=== PATIENT | male | born 1965 | race Caucasian/White ===

== ENCOUNTER 2017-05-04 08:42 | Emergency (ER) | payer SELFPAY ==
[2017-05-04 09:05] VITALS: BMI 41.5
--- NOTE | 2017-05-04 10:39 | PDOC ---
Attending Attestation - Resident Resident Name: Franklin Saravia - ED Attending Attestation I have performed the following: I have examined & evaluated the patient, The case was reviewed & discussed with the resident, I agree w/resident's findings & plan, Exceptions are as noted - HPI HPI: 05/04/17 10:38 51y M hx of dm, htn, n/v/d for the past few days, after eating syriac food. Initially n/v, but resolved, now watery diarrhea, non bloody. Pt notes some blaoting but without abdominal pain. pt notes the vomiting stopped a few days ago. The diarrhea continued until this morning around 8am. NO melena/bloodin rectom. pt denies any fever/chills, back pain. No other sick contacts or recent travel. exam: general: well apeparing, NAD abd: soft notnender ENT: mmm suspect AGE, as pt has no pmd/uninsured - will ck labs to r/o dka, metabolic dernageemnt labs were normal pt tolerating oral intake will dc wiht pmd fu - Physicial Exam PE: 05/07/17 11:31 see above - Medical Decision Making 05/07/17 11:31 see above
[2017-05-04] MEDS ORDERED: amLODIPine BESYLATE 5 MG TABLET (FP) PO ONE (11:01)
[2017-05-04 11:02] LABS: BASO % 0.5 % (0-2.0); EOS % 1.4 % (0-4.5); HEMATOCRIT 41.9 % (35.4-49); HEMOGLOBIN 14.4 GM/dL (11.7-16.9); LYMPH % 20.4 % (8-40); MCH 28.2 pg (25.7-33.7); MCHC 34.3 g/dl (32.0-35.9); MEAN CELL VOLUME 82.4 fl (80-96); MEAN PLT VOLUME 7.9 fl (7.5-11.1); MONO % 4.7 % (3.8-10.2); PLATELET COUNT 206 K/MM3 (134-434); RBC 5.09 M/mm3 (4.00-5.60); RDW 13.3 % (11.9-15.9); WHITE BLOOD COUNT 7.1 K/mm3 (4.0-10.0)
--- NOTE | 2017-05-04 11:10 | PDOC ---
History of Present Illness - General Chief Complaint: Vomiting/Diarrhea Stated Complaint: Vomiting/Diarrhea Time Seen by Provider: 05/04/17 09:52 - History of Present Illness Initial Comments: 05/04/17 11:02 Patient is a 51yo w/ DM2, HTN, HLD noncompliant with medications due to lack of insurance. He presents with 4-5 days of watery diarrhea after eating [place] food at an outside restaurant. He ate last afternoon, and that night subsequently had 4 episodes of NBNB emesis. Since then, he has experienced watery diarrhea every day. He denies any abdominal pain whatsoever since . Only endorses mild bloating since the onset of the diarrhea. He denies blood or fatty stool. Denies generalized symptoms such as fever, chills, body aches, weight loss. He denies taking any new antibiotics or other medications. Denies recent travel. No sick contacts Past History - Past Medical History Allergies/Adverse Reactions: Allergies Allergy/AdvReac Type Severity Reaction Status Date / Time No Known Allergies Allergy Verified 05/04/17 09:02 Home Medications: Ambulatory Orders Rosuvastatin Calcium [Crestor] 10 mg PO DAILY 11/29/11 Famotidine [Pepcid] 20 mg PO DAILY #7 tablet 08/11/14 Fenofibrate 1 tab PO DAILY 08/11/14 Linagliptin/Metformin HCl [Jentadueto 2.5 mg-1000 mg Tab] 1 each PO BID #30 tablet 08/11/14 Glipizide 5 mg PO DAILY #30 tablet 05/04/17 Lisinopril 10 mg PO DAILY #30 tablet 05/04/17 COPD: No Diabetes: Yes GI Disorders: Yes (gastroparesis) HTN: Yes Hypercholesterolemia: Yes - Family Disease History Family Disease History: Diabetes: Father, Heart Disease: Father - Suicide/Smoking/Psychosocial Hx Smoking Status: No Smoking History: Never smoked Have you smoked in the past 12 months: No Number of Cigarettes Smoked Daily: 0 If you are a former smoker, when did you quit?: "many years ago" as per pt Information on smoking cessation initiated: No Hx Alcohol Use: No Drug/Substance Use Hx: No Substance Use Type: None Hx Substance Use Treatment: No *Physical Exam - Vital Signs Last Vital Signs Temp Pulse Resp BP Pulse Ox 98.8 F 96 H 18 159/105 98 05/04/17 09:03 05/04/17 09:03 05/04/17 09:03 05/04/17 09:03 05/04/17 10:52 - Physical Exam Comments: 05/04/17 11:10 GEN: AAOx3, NAD, Lying comfortably HEENT: PERRLA, EOMi, appears euvolemic, mucosa is not dry CV: S1, S2, RRR LUNG: CTABL ABD: Mild distension, no tenderness to palpation MSK: No edema, no erythema NEURO: CN 2-12 intact grossly ED Treatment Course - LABORATORY CBC & Chemistry Diagram: 05/04/17 10:42 05/04/17 10:42 Medical Decision Making - Medical Decision Making 05/04/17 11:11 51yo patient with a history DM2 and recent albanian food intake with subsequent vomiting and diarrhea, likely viral gastroenteritis. Will get basic labs to rule out severe conditions such as DKA. Though has cardiac risk factors, mesenteric ischemia is unlikely without abdominal pain. Since there is no abdominal pain, will defer from imaging at the moment. Will order CBC, CMP, UA Will give Norvasc 5mg for HTN Will defer fluids for now due to euvolemic status, but will encourage PO hydration Dispo plan pending labs. 05/04/17 11:51 CBC wnl, Glucose 255 but no ketoacidosis. Unlikely DKA. 05/04/17 12:24 Dispo home with prescriptions for diabetes and high blood pressure. While patient is obtaining insurance, will prescribe low cost Glipizide 5mg daily and Lisinopril 10mg daily until then. Will also recommend seeing free clinic at [facility]. *DC/Admit/Observation/Transfer Diagnosis at time of Disposition: Viral gastroenteritis - Discharge Dispostion Disposition: HOME Condition at time of disposition: Stable Admit: No - Prescriptions Prescriptions: Glipizide 5 mg PO DAILY #30 tablet Lisinopril 10 mg PO DAILY #30 tablet - Referrals Referrals: Matteo Penny MD [Primary Care Provider] - - Patient Instructions Printed Discharge Instructions: DI for Viral Gastroenteritis -- Adult - Post Discharge Activity
[2017-05-04 11:13] LABS: URINE APPEARANCE CLEAR; URINE BILIRUBIN NEGATIVE (NEGATIVE); URINE BLOOD 1+ (NEGATIVE); URINE COLOR YELLOW; URINE GLUCOSE (UA) 3+ (NEGATIVE); URINE KETONE NEGATIVE (NEGATIVE); URINE LEUK ESTERASE NEGATIVE (NEGATIVE); URINE NITRITE NEGATIVE (NEGATIVE); URINE UROBILINOGEN NEGATIVE mg/dL (0.2-1.0)
[2017-05-04] MEDS ORDERED: amLODIPine BESYLATE 5 MG TABLET (FP) ONE (11:15)
[2017-05-04 11:18] LABS: EPI CELLS RARE /HPF (FEW); GRANULAR CASTS 1 /lpf; URINE MUCUS RARE; URINE PROTEIN 3+ (NEGATIVE)
[2017-05-04 11:21] LABS: ANION GAP 10 (8-16); BLOOD UREA NITROGEN 10 mg/dL (7-18); CHLORIDE 105 mmol/L (98-107); CO2 23 mmol/L (21-32); GLUCOSE,RANDOM 255 mg/dL (74-106); POTASSIUM 3.6 mmol/L (3.5-5.1); SODIUM 138 mmol/L (136-145)
[2017-05-04 11:25] LABS: ALK PHOS 82 U/L (45-117); BILIRUBIN,TOTAL 0.7 mg/dL (0.2-1.0); CREATININE 0.6 mg/dL (0.7-1.3); SGOT/AST 35 U/L (15-37); SGPT/ALT 52 U/L (12-78)
[2017-05-04 13:22] VITALS: BP 137/90; PULSE 89; TEMP 98.1
== END 2017-05-04 13:26 | disposition home or self-care (01) ==
LOC: JER 08:42
DX: B97.89 Other viral agents as the cause of diseases classified elsewhere (principal); I10 Essential (primary) hypertension; E78.00 Pure hypercholesterolemia, unspecified; E11.9 Type 2 diabetes mellitus without complications; Z79.84 Long term (current) use of oral hypoglycemic drugs; K31.84 Gastroparesis
CPT/HCPCS: 36415; 80053; 81003; 81015; 85025; 99283-25

== ENCOUNTER 2020-05-06 00:48 | Inpatient (IN) | payer OTHER ==
[2020-05-06 00:53] VITALS: TEMP 98.2; BMI 26.6
[2020-05-06] MEDS ORDERED: LISINOPRIL 10 MG TABLET PO ONE (03:04)
[2020-05-06 03:15] LABS: EOS % 2.7 % (0-4.5); HEMATOCRIT 42.4 % (35.4-49); HEMOGLOBIN 14.9 GM/dL (11.7-16.9); LYMPH % 26.2 % (8-40); MCH 29.7 pg (25.7-33.7); MCHC 35.2 g/dl (32.0-35.9); MEAN CELL VOLUME 84.2 fl (80-96); MEAN PLT VOLUME 8.3 fl (7.5-11.1); MONO % 5.9 % (3.8-10.2); PLATELET COUNT 178 K/MM3 (134-434); RBC 5.04 M/mm3 (4.00-5.60); RDW 14.3 % (11.9-15.9)
[2020-05-06 03:16] LABS: BASO % 1.2 % (0-2.0)
[2020-05-06] MEDS ORDERED: LISINOPRIL 5 MG TABLET ONE ×2 (03:16→11:21)
[2020-05-06 03:35] LABS: POTASSIUM 3.8 mmol/L (3.5-5.1)
[2020-05-06 03:38] LABS: ALBUMIN 3.2 g/dl (3.4-5.0); BLOOD UREA NITROGEN 13.2 mg/dL (7-18)
[2020-05-06 03:41] LABS: CREATININE 0.6 mg/dL (0.55-1.3)
[2020-05-06 03:42] LABS: BILIRUBIN,TOTAL 0.8 mg/dL (0.2-1); TOT PROT 7.1 g/dl (6.4-8.2)
[2020-05-06] MEDS ORDERED: ENOXAPARIN NA (PORCINE) 40 MG/0.4 ML DISP.SYRIN SQ SCH (10:00)
[2020-05-06] MEDS ORDERED: LISINOPRIL 10 MG TABLET PO SCH (10:00)
[2020-05-06] MEDS ORDERED: INSULIN SLIDING SCALE (NOVOLOG) 1 VIAL SQ SCH (11:00)
[2020-05-06] MEDS ORDERED: LISINOPRIL 20 MG TABLET PO SCH (17:22)
[2020-05-06 17:27] VITALS: BP 146/100; PULSE 95
[2020-05-06] MEDS ORDERED: ASPIRIN COATED 81 MG TABLET.EC PO SCH (17:30)
[2020-05-06] MEDS ORDERED: CARVEDILOL 6.25 MG TABLET (FP) PO SCH (22:00)
[2020-05-06] MEDS ORDERED: ROSUVASTATIN CA 10 MG TABLET (FP) PO SCH (22:00)
== END 2020-05-06 17:26 | disposition left against medical advice (07) | DRG 111 ==
LOC: JER 00:48 → JERBED 05:24
PROVIDERS: ADMIT Internal Medicine; ATTEND Internal Medicine
DX: R42 Dizziness and giddiness (principal); I10 Essential (primary) hypertension; E78.5 Hyperlipidemia, unspecified; E03.9 Hypothyroidism, unspecified; I24.8 Other forms of acute ischemic heart disease; E11.9 Type 2 diabetes mellitus without complications
CPT/HCPCS: 36415; 70450-TC; 80053; 82550; 82553; 82962; 84484; 85025; 93005; 93010; 93306-TC; 99285-25; C9803; U0003

== ENCOUNTER 2021-07-08 05:36 | Day surgery (SDC) | payer OTHER ==
[2021-07-03 14:52] VITALS: BMI 31.6
[2021-07-08] MEDS ORDERED: SODIUM CHLORIDE 500 ML IV SCH (10:30)
[2021-07-08] MEDS ORDERED: MIDAZOLAM HCL 2 MG/2 ML SINGLE DOSE VIAL IVPUSH ONE (10:40)
[2021-07-08 15:29] VITALS: BP 148/87; PULSE 79; TEMP 97.7
== END 2021-07-08 15:45 | disposition home or self-care (01) ==
LOC: JRADIR 05:36
PROVIDERS: ATTEND Internal Medicine Nephrology
PROC: 0TB03ZX Excision of Right Kidney, Percutaneous Approach, Diagnostic (ICD-10-PCS; principal; 2021-07-08)
DX: N26.9 Renal sclerosis, unspecified (principal)
CPT/HCPCS: 50200; 82962; 88300-TC

== ENCOUNTER 2021-09-11 11:57 | Emergency (ER) | payer OTHER ==
[2021-09-11 12:31] VITALS: BMI 33.1
[2021-09-11] MEDS ORDERED: FAMOTIDINE 10 MG TABLET PO ONE (13:07)
[2021-09-11] MEDS ORDERED: MAG HYDROX/AL HYDROX/SIMETH 30 ML UNIT-DOSE CUP PO ONE (13:07)
[2021-09-11 13:31] LABS: BASO % 0.9 % (0-2.0); EOS % 4.7 % (0-4.5); HEMATOCRIT 46.3 % (35.4-49); HEMOGLOBIN 15.6 GM/dL (11.7-16.9); LYMPH % 22.5 % (8-40); MCH 27.6 pg (25.7-33.7); MCHC 33.6 g/dl (32.0-35.9); MEAN CELL VOLUME 81.9 fl (80-96); MEAN PLT VOLUME 8.4 fl (7.5-11.1); MONO % 6.7 % (3.8-10.2); NEUT % 65.2 % (42.8-82.8); PLATELET COUNT 154 10^3/uL (134-434); RBC 5.65 M/mm3 (4.00-5.60); RDW 15.8 % (11.9-15.9); WHITE BLOOD COUNT 6.7 K/mm3 (4.0-10.0)
[2021-09-11 13:37] LABS: INR 0.95 (0.83-1.09); PROTHROMBIN TIME (PATIENT) 10.9 SEC (9.7-13.0)
[2021-09-11 13:40] LABS: ACTIVATED PTT 27.8 SECONDS (25.2-36.5)
[2021-09-11 14:00] LABS: CALCIUM 9.4 mg/dL (8.5-10.1)
[2021-09-11 14:01] LABS: BLOOD UREA NITROGEN 14.9 mg/dL (7-18)
[2021-09-11 14:02] LABS: ALBUMIN 3.7 g/dl (3.4-5.0)
[2021-09-11 14:04] LABS: CREATININE 0.5 mg/dL (0.55-1.3)
[2021-09-11 14:05] LABS: BILIRUBIN,TOTAL 0.9 mg/dL (0.2-1); TOT PROT 7.7 g/dl (6.4-8.2)
[2021-09-11 16:09] VITALS: BP 127/79; PULSE 80; TEMP 98.8
== END 2021-09-11 16:15 | disposition home or self-care (01) ==
LOC: JER 11:57
DX: R42 Dizziness and giddiness (principal)
CPT/HCPCS: 36415; 71045-TC-FY; 80053; 84484; 85025; 85610; 85730; 93005; 93010; 99285-25

== ENCOUNTER 2023-08-01 04:30 | Emergency (ER) | payer OTHER ==
[2023-08-01 04:40] VITALS: BP 194/98; PULSE 75; RESP 18; TEMP 97.8; BMI 24.3
[2023-08-01] MEDS ORDERED: CYCLOBENZAPRINE HCL 10 MG TABLET (FP) ONE (05:47)
[2023-08-01] MEDS ORDERED: KETOROLAC TROMETHAMINE 30 MG/1 ML VIAL ONE (05:47)
[2023-08-01] MEDS ORDERED: LIDOCAINE 4% PATCH TP ONE (05:48)
[2023-08-01] MEDS: KETOROLAC TROMETHAMINE 30 MG/1 ML VIAL IM ONE (06:06)
[2023-08-01] MEDS: CYCLOBENZAPRINE HCL 5 MG TABLET PO ONE (06:07)
[2023-08-01] MEDS: LIDOCAINE 4% PATCH TP ONE (06:07)
[2023-08-01] MEDS ORDERED: LIDOCAINE PATCH REMOVAL MC SCH (22:00)
== END 2023-08-01 08:10 | disposition home or self-care (01) ==
LOC: JER 04:30
PROC: 3E0233Z Introduction of Anti-inflammatory into Muscle, Percutaneous Approach (ICD-10-PCS; principal; 2023-08-01)
DX: M79.601 Pain in right arm (principal); M25.511 Pain in right shoulder
CPT/HCPCS: 73030-TC-RT-FY; 73060-TC-RT-FY; 99284-25

== ENCOUNTER 2023-11-30 14:35 | Emergency (ER) | payer OTHER ==
[2023-11-30 14:55] VITALS: BP 145/87; PULSE 95; RESP 16; TEMP 98.9; BMI 34.1
[2023-11-30] MEDS: BACITRACIN 0.9 GM PACKET TP SCH (17:04)
[2023-11-30] MEDS ORDERED: BACITRACIN ZINC 15 GM TUBE TOPICAL OINTMENT TP SCH ×2 (22:00)
== END 2023-11-30 17:05 | disposition home or self-care (01) ==
LOC: JER 14:35
DX: S81.812A Laceration without foreign body, left lower leg, initial encounter (principal); X50.1XXA Overexertion from prolonged static or awkward postures, initial encounter
CPT/HCPCS: 99283-25

== ENCOUNTER 2023-12-25 03:48 | Emergency (ER) | payer OTHER ==
[2023-12-25 03:57] VITALS: RESP 18; BMI 34.3
[2023-12-25] MEDS: MECLIZINE HCL 25 MG TABLET (FP) PO ONE (04:53)
[2023-12-25] MEDS ORDERED: MAG HYDROX/AL HYDROX/SIMETH 30 ML UNIT-DOSE CUP ONE (04:57)
[2023-12-25] MEDS ORDERED: ONDANSETRON 4 MG/2 ML VIAL ONE (04:57)
[2023-12-25] MEDS ORDERED: ACETAMINOPHEN INJECTION 100 ML ONE (04:57)
[2023-12-25] MEDS ORDERED: FAMOTIDINE 20 MG/50 ML IVPB 20 MG/50 ML MG IVPB ONE (04:57)
[2023-12-25] MEDS: MAG HYDROX/AL HYDROX/SIMETH 30 ML UNIT-DOSE CUP PO ONE (04:59)
[2023-12-25] MEDS: SODIUM CHLORIDE 0.9% 500 ML INFUS.BAG IV ONE (05:00)
[2023-12-25] MEDS: FAMOTIDINE 20 MG/50 ML IVPB 20 MG/50 ML MG IVPB ONE (05:00)
[2023-12-25] MEDS: ACETAMINOPHEN 1000 MG/100 ML BAG IVPB ONE (05:00)
[2023-12-25] MEDS: ONDANSETRON 4 MG/2 ML VIAL IVPUSH ONE (05:00)
[2023-12-25 05:15] LABS: EPI CELLS 20 /uL (0-25.1); HYALINE CASTS 1 /uL (0-3.1); URINE APPEARANCE CLEAR; URINE BACTERIA 970 /uL (0-1359); URINE BILIRUBIN NEGATIVE (NEGATIVE); URINE COLOR YELLOW; URINE GLUCOSE (UA) 3+ (NEGATIVE); URINE KETONE TRACE (NEGATIVE); URINE LEUK ESTERASE NEGATIVE (NEGATIVE); URINE NITRITE NEGATIVE (NEGATIVE); URINE PROTEIN 4+ (NEGATIVE); URINE RBC 12 /uL (0-23.9)
[2023-12-25 05:47] LABS: BASO % 0.5 % (0-2.0); EOS % 0.6 % (0-4.5); HEMATOCRIT 40.7 % (35.4-49); LYMPH % 6.4 % (8-40); MCH 28.3 pg (25.7-33.7); MCHC 34.3 g/dl (32.0-35.9); MEAN CELL VOLUME 82.4 fl (80-96); MEAN PLT VOLUME 8.4 fl (7.5-11.1); MONO % 5.6 % (3.8-10.2); NEUT % 86.9 % (42.8-82.8); PLATELET COUNT 125 10^3/uL (134-434); RBC 4.94 M/mm3 (4.00-5.60); WHITE BLOOD COUNT 11.7 K/mm3 (4.0-10.0)
[2023-12-25 06:06] LABS: POTASSIUM 4.1 mmol/L (3.5-5.1)
[2023-12-25 06:08] LABS: CALCIUM 9.7 mg/dL (8.5-10.1)
[2023-12-25 06:09] LABS: ALBUMIN 3.6 g/dl (3.4-5.0); BLOOD UREA NITROGEN 18.1 mg/dL (7-18)
[2023-12-25 06:12] LABS: CREATININE 0.9 mg/dL (0.55-1.3)
[2023-12-25 06:13] LABS: BILIRUBIN,TOTAL 1.4 mg/dL (0.2-1); TOT PROT 7.4 g/dl (6.4-8.2)
[2023-12-25 07:05] LABS: HIV INTERPRETATION NEGATIVE (NEGATIVE)
[2023-12-25 08:40] VITALS: BP 135/70; PULSE 72; TEMP 97.7
== END 2023-12-25 09:06 | disposition home or self-care (01) ==
LOC: JER 03:48
PROC: 3E033GC Introduction of Other Therapeutic Substance into Peripheral Vein, Percutaneous Approach (ICD-10-PCS; principal; 2023-12-25)
PROC: 3E033GC Introduction of Other Therapeutic Substance into Peripheral Vein, Percutaneous Approach (ICD-10-PCS; 2023-12-25)
PROC: 3E033NZ Introduction of Analgesics, Hypnotics, Sedatives into Peripheral Vein, Percutaneous Approach (ICD-10-PCS; 2023-12-25)
DX: R11.2 Nausea with vomiting, unspecified (principal); N41.9 Inflammatory disease of prostate, unspecified; K59.00 Constipation, unspecified; R10.31 Right lower quadrant pain; R10.32 Left lower quadrant pain; Z20.822 Contact with and (suspected) exposure to COVID-19
CPT/HCPCS: 0241U-QW; 36415; 74177-TC; 80053; 81003; 83690; 84484; 85025; 86803; 87086; 87389; 93005; 93010; 99285-25; J0131; Q9967

== ENCOUNTER 2024-02-02 04:05 | Day surgery (SDC) | payer OTHER ==
[2024-01-28 11:58] VITALS: BMI 34.8
[~2024-02-02 04:05] MED LIST: ACETAMINOPHEN 325 MG TABLET (FP) PO PRN
[2024-02-02] MEDS ORDERED: TETRACAINE 0.5% OPHTH SOLN 2 ML BOTTLE ONE (07:45)
[2024-02-02] MEDS ORDERED: POVIDONE-IODINE 5% OPHTHALMIC PREP 30 ML SOLUTION ONE (07:45)
[2024-02-02] MEDS ORDERED: PHENYLEPHRINE/KETOROLAC 4 ML VIAL IO ONE (07:45)
[2024-02-02] MEDS ORDERED: LIDOCAINE HCL/PF 1% SDV 5ML VIAL ONE (07:45)
[2024-02-02] MEDS ORDERED: KETOROLAC TROMETHAMINE 0.5% EYE DROP 1 DROP DROPS ONE (10:08)
[2024-02-02] MEDS ORDERED: CYCLOPENTOLATE HCL 1% OPHTH SOLN 2 ML BOTTLE ONE (10:08)
[2024-02-02] MEDS ORDERED: TROPICAMIDE 1% OPHTH SOLN 15 ML BOTTLE ONE (10:08)
[2024-02-02] MEDS ORDERED: PHENYLEPHRINE 2.5% OPTHALMIC DROP 2ML BOTTLE ONE (10:08)
[2024-02-02] MEDS ORDERED: OFLOXACIN 0.3% OPHTHALMIC SOLUTION 5 ML BOTTLE ONE (10:08)
[2024-02-02] MEDS: TROPICAMIDE 1% OPHTH SOLN 15 ML BOTTLE OP SCH (10:40)
[2024-02-02] MEDS: OFLOXACIN 0.3% OPHTHALMIC SOLUTION 5 ML BOTTLE OP SCH (10:41)
[2024-02-02] MEDS: CYCLOPENTOLATE HCL 1% OPHTH SOLN 2 ML BOTTLE OP SCH (10:41)
[2024-02-02] MEDS: KETOROLAC TROMETHAMINE 0.5% EYE DROP 1 DROP DROPS OP SCH (10:41)
[2024-02-02] MEDS: PHENYLEPHRINE 2.5% OPHTH SOLN 15 ML BOTTLE OP SCH (10:41)
[2024-02-02] MEDS: TETRACAINE 0.5% OPHTH SOLN 2 ML BOTTLE OS ONE ×2 (10:57→11:38)
[2024-02-02] MEDS: POVIDONE-IODINE 5% OPHTHALMIC PREP 30 ML SOLUTION OS ONE ×2 (10:58→11:40)
[2024-02-02] MEDS: LIDOCAINE HCL 1% PRESERVATIVE FREE - 30ML VIAL IO ONE ×2 (10:59→11:47)
[2024-02-02] MEDS: CHONDROITIN SU A/HYALUR SOD 1 KIT IO ONE ×2 (10:59→11:48)
[2024-02-02] MEDS: BSS (NA/CA/MG/K) BALANCED SALT SOLUTION OPHTH SOLN 15 ML BOTTLE IO ONE ×2 (10:59→11:48)
[2024-02-02] MEDS: PHENYLEPHRINE/KETOROLAC 4 ML VIAL IO ONE ×2 (11:00→11:59)
[2024-02-02] MEDS: TRYPAN BLUE 0.5 ML DISP.SYRIN IO ONE (11:28)
[2024-02-02] MEDS: HYALURONATE SODIUM 23 MG/1 ML SYRINGE IO ONE ×2 (11:30→11:49)
[2024-02-02] MEDS ORDERED: MIDAZOLAM HCL 2 MG/2 ML SINGLE DOSE VIAL ONE (11:36)
[2024-02-02] MEDS: ACETYLCHOLINE 1:100 INTRA-OCUL 20 MG/2 ML KIT IO ONE (12:10)
[2024-02-02 13:16] VITALS: RESP 18
[2024-02-02 14:22] VITALS: BP 128/63; PULSE 76; TEMP 97.8
== END 2024-02-02 13:40 | disposition home or self-care (01) ==
LOC: JASU-SURG 04:05
PROVIDERS: ATTEND Ophthalmology
PROC: 08RK3JZ Replacement of Left Lens with Synthetic Substitute, Percutaneous Approach (ICD-10-PCS; principal; 2024-02-02 12:00)
DX: H25.89 Other age-related cataract (principal)
CPT/HCPCS: 66984; V2632; 82962; C1713; J1097

== ENCOUNTER 2024-06-02 14:49 | Emergency (ER) | payer OTHER ==
[2024-06-02 14:57] VITALS: RESP 16
[2024-06-02 15:00] VITALS: BP 145/73; PULSE 64; TEMP 98.7; BMI 34.2
[2024-06-02 16:48] LABS: BASO % 0.9 % (0-2.0); HEMATOCRIT 42.8 % (35.4-49); HEMOGLOBIN 14.5 GM/dL (11.7-16.9); LYMPH % 18.6 % (8-40); MCH 28.3 pg (25.7-33.7); MCHC 33.8 g/dl (32.0-35.9); MEAN CELL VOLUME 83.9 fl (80-96); MEAN PLT VOLUME 8.7 fl (7.5-11.1); MONO % 6.3 % (3.8-10.2); NEUT % 70.2 % (42.8-82.8); PLATELET COUNT 158 10^3/uL (134-434); RDW 14.6 % (11.9-15.9); WHITE BLOOD COUNT 7.7 K/mm3 (4.0-10.0)
[2024-06-02 17:15] LABS: POTASSIUM 4.3 mmol/L (3.5-5.1)
[2024-06-02 17:17] LABS: ALBUMIN 3.9 g/dl (3.4-5.0); BLOOD UREA NITROGEN 24.4 mg/dL (7-18); CALCIUM 9.8 mg/dL (8.5-10.1)
[2024-06-02 17:20] LABS: CREATININE 1.1 mg/dL (0.55-1.3)
[2024-06-02 18:09] LABS: HIV INTERPRETATION NEGATIVE (NEGATIVE)
== END 2024-06-02 18:58 | disposition home or self-care (01) ==
LOC: JER 14:49
DX: R42 Dizziness and giddiness (principal)
CPT/HCPCS: 36415; 70450-TC; 71046-TC-FY; 80053; 82962; 84484; 85025; 86803; 87389; 93005; 93010; 99285-25